=== PATIENT | male | born 1990 | race American Indian/Alaskan Native ===

== ENCOUNTER 2020-04-29 14:33 | Emergency (ER) | payer MEDICAID ==
--- NOTE | 2020-04-29 16:13 | Emergency Department Report ---
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 The patient was found on the floor by EMS with "shaking like movement." EMS stated the patient will respond while having the shaking like activity. Patient does not answer questions ED Past Medical Hx - Past Medical History Previous Medical History?: Yes Hx Seizures: Yes (pseudo) - Surgical History Past Surgical History?: Yes Additional Surgical History: right knee - Family History Family history: no significant - Social History Smoking Status: Never Smoker Substance Use Type: None - Medications Home Medications: Home Medications Medication Instructions Recorded Confirmed Last Taken Type Lacosamide [Vimpat] 100 mg PO Q12HR 04/29/20 04/29/20 Unknown History Phenytoin [Dilantin] 200 mg PO BID 04/29/20 04/29/20 Unknown History ED Review of Systems ROS: Stated complaint: SEIZURE Other details as noted in HPI Comment: Unobtainable due to pts medical conditions (Patient not answering questions) Physical Exam - Physical Exam Vital Signs: Vital Signs 04/29/20 15:09 Temperature 98.8 F Pulse Rate 97 H Respiratory 18 Rate Blood Pressure 110/68 O2 Sat by Pulse 97 Oximetry Physical Exam: GENERAL: The patient is well-developed well-nourished male sitting up on stretcher looking around ED but not answering questions. [] HEENT: Normocephalic. Atraumatic. Extraocular motions are intact. Patient has moist mucous membranes. NECK: Supple. Trachea midline CHEST/LUNGS: Clear to auscultation. There is no respiratory distress noted. HEART/CARDIOVASCULAR: Regular. There is no tachycardia. There is no gallop rub or murmur. ABDOMEN: Abdomen is soft, nontender. Patient has normal bowel sounds. There is no abdominal distention. SKIN: There is no rash. There is no edema. There is no diaphoresis. NEURO: The patient is awake and alert. The patient is not cooperative. MUSCULOSKELETAL: There is no evidence of acute injury. ED Course Vital Signs 04/29/20 15:09 Temperature 98.8 F Pulse Rate 97 H Respiratory 18 Rate Blood Pressure 110/68 O2 Sat by Pulse 97 Oximetry ED Medical Decision Making - Lab Data Result diagrams: 04/29/20 15:04 04/29/20 15:04 Laboratory Tests 04/29/20 04/29/20 04/29/20 15:04 15:04 15:13 WBC 5.1 RBC 4.59 Hgb 13.9 Hct 40.7 MCV 89 MCH 30 MCHC 34 RDW 13.3 Plt Count 156 Lymph % (Auto) 19.0 Turner % (Auto) 7.6 H Eos % (Auto) 0.3 Baso % (Auto) 0.6 Lymph # 1.0 L Turner # 0.4 Eos # 0.0 Baso # 0.0 Seg Neutrophils % 72.5 H Seg Neutrophils # 3.7 Sodium 138 Potassium 4.5 Chloride 101.4 Carbon Dioxide 21 L Anion Gap 20 BUN 16 Creatinine 0.9 Estimated GFR > 60 BUN/Creatinine Ratio 18 Glucose 81 POC Glucose 65 L Calcium 9.0 Magnesium 1.70 - Differential Diagnosis Pseudoseizure, seizure Critical care attestation.: If time is entered above; I have spent that time in minutes in the direct care of this critically ill patient, excluding procedure time. ED Disposition Clinical Impression: Pseudoseizure Disposition: DC-01 TO HOME OR SELFCARE Is pt being admited?: No Does the pt Need Aspirin: No Condition: Stable Additional Instructions: Return to the emergency department should you develop worsening symptoms, inability to tolerate food or liquids, high fever or any other concerns Referrals: PRIMARY CARE, [Primary Care Provider] - 3-5 Days Time of Disposition: 18:14
[2020-04-29 16:32] LABS: Basophils % (Auto) 0.6 % (0.0-1.8); Eosinophils % (Auto) 0.3 % (0.0-4.3); Hematocrit 40.7 % (35.5-45.6); Hemoglobin 13.9 gm/dl (11.8-15.2); Mean Corpuscular HGB Conc 34 % (32-34); Mean Corpuscular Volume 89 fl (84-94); Monocytes # (Auto) 0.4 K/mm3 (0.0-0.8); Monocytes % (Auto) 7.6 % (0.0-7.3); Platelet Count 156 K/mm3 (140-440); Red Blood Count 4.59 M/mm3 (3.65-5.03); Red Cell Distribution Width 13.3 % (13.2-15.2)
[2020-04-29 16:53] LABS: BUN/Creatinine Ratio 18; Blood Urea Nitrogen 16 mg/dL (9-20); Hemolysis Index 68
[2020-04-29 21:14] VITALS: BP 114/80
== END 2020-04-29 21:00 | disposition home or self-care (01) ==
LOC: ED 14:33
DX: F44.5 Conversion disorder with seizures or convulsions (principal); Z79.899 Other long term (current) drug therapy
CPT/HCPCS: 36415; 80048; 80185; 82962; 83735; 85025